=== PATIENT | male | born 1945 | race Caucasian/White ===

== ENCOUNTER 2018-10-24 12:18 | Observation (INO) ==
[2018-10-24 12:35] LABS: Basophils % 0.4 %; Eosinophils % 0.5 %; Immature Granulocytes % 0.1 % (0-4); Lymphocytes # 0.4 K/mcL (0.6-4.6); Lymphocytes % 5.2 %; Mean Corpuscular HGB Conc 32.6 g/dL (31.6-35.5); Mean Corpuscular Hemoglobin 32.5 pg (28.0-33.3); Mean Corpuscular Volume 99.6 fL (83.0-100.0); Mean Platelet Volume 9.6 fL (9.4-12.4); Monocytes # 0.4 K/mcL (0.0-1.3); Monocytes % 4.9 %; Neutrophils # 7.5 K/mcL (1.6-8.9); Platelet Count 113 K/mcL (140-400); Red Blood Count 4.62 M/mcL (4.19-5.50); Segmented Neutrophils % 88.9 %; White Blood Count 8.5 K/mcL (4.3-11.1)
[2018-10-24 12:48] LABS: INR 1.1; Prothrombin Time 12.6 Seconds (9.4-12.1)
[2018-10-24] MEDS ORDERED: 0.9 % Sodium Chloride 1,000 ML IVC ONE (12:50)
[2018-10-24 12:51] LABS: Activated Partial Thrombo Time 30.4 Seconds (26.0-36.0)
--- NOTE | 2018-10-24 12:53 | Emergency Department Note ---
Disposition Clinical Impression: Chest pain Disposition: Admitted As Inpatient Condition: Fair Forms: ED Satisfaction Letter Time of Disposition: 14:08 Chest Pain HPI - General Chief Complaint: ED Chest Pain Stated Complaint: CP Time Seen by Provider: 10/24/18 12:22 - History of Present Illness HPI Narrative: Patient is 73-year-old male presents to the emergency room after an episode of lightheadedness and chest discomfort. The patient states that in the shower today and he started feeling lightheaded this morning around 8 AM. The patient states that he apparently was shaving after the shower he got continued lightheadedness and needed to sit down. Patient states that shortly thereafter this episode he started developing some chest discomfort. He states at times it was sharp in intensity and then would go away. He did have some diaphoresis however he states that sometimes he does get sweaty for no apparent reasons. The patient does have a history of coronary artery disease with a history of 3 stents last stent put in about 10 years ago according to patient. Patient denies any back pain, denies any abdominal pain. He readily admits he does not drink enough water. Patient denies any other or GI complaints. He does have a history of Parkinson's. The patient denies any focal arm or leg weakness however. He denies any headache. Patient denies any blurred vision. Patient currently denies any pain. The patient was able to take 4 baby aspirin prior to arrival. Patient states when he was having the pain and the pain was mild in intensity. Nothing else making the pain better or worse while he was having it. Severity scale (1-10): 0 - Related Data Home Medications Medication Instructions Recorded Confirmed Aspirin [Lo-Dose Aspirin EC] 81 mg PO DAILY 10/24/18 10/24/18 Atorvastatin Calcium [Lipitor] 40 mg PO HS 10/24/18 10/24/18 Cholecalciferol (Vitamin D3) 1,000 unit PO DAILY 10/24/18 10/24/18 [Vitamin D] Donepezil HCl [Aricept] 10 mg PO DAILY 10/24/18 10/24/18 Multivitamin [Daily Multiple 1 each PO DAILY 10/24/18 10/24/18 Vitamin] Timolol Maleate 0.5% 1 drop LEFT EYE BID 10/24/18 10/24/18 Allergies Allergy/AdvReac Type Severity Reaction Status Date / Time Penicillins AdvReac Rash Verified 06/30/16 11:14 Review of Systems: As mentioned per history of present illness and as follows. Constitutional: Negative for chills or fever HENT: Negative for sore throat. Eyes: Negative for visual disturbance Respiratory: Negative for shortness of breath. Cardiovascular: Negative for palpitations. Gastrointestinal: Negative for abdominal pain Genitourinary: Negative for dysuria Musculoskeletal: Negative for back pain. Skin: Negative for rash. Neurological: Negative for focal weakness Psychiatric/Behavioral: Negative for depression Chest Pain PMH - Past Medical History Medical history: Reports: dementia, hyperlipidemia, myocardial infarction - Social History Smoking Status: Never smoker Alcohol use: Reports: none Drug use: Reports: none Physical Exam PHYSICAL EXAM Constitutional: Well developed, Well nourished, No acute distress, Non-toxic appearance. HENT: Normocephalic, Atraumatic, Bilateral external ears normal, Oropharynx moist, No oral exudates, Nose normal. Neck- Normal range of motion, No tenderness, Supple. Eyes: PERRL, EOMI, Conjunctiva normal,. Cardiovascular: Regular rate and rhythm without clicks, rubs, gallops or murmurs. Respiratory: Normal breath sounds, No respiratory distress, No wheezing, rhonchi, or crackles. GI: Soft, nontender, no evidence of guarding or peritoneal signs. Bowel sounds are active. Musculoskeletal: Good range of motion in all major joints. No tenderness to palpation or major deformities noted. Equal strength in the upper and lower extremities Integument: Warm, Dry, No erythema, No rash. No edema. Neurologic: Alert & oriented x 3, Normal sensory function, No focal deficits noted. CN II-XII grossly intact. - General General appearance: alert Course Vital Signs Temperature 98.7 F 10/24/18 12:36 Pulse Rate 58 10/24/18 12:36 Respiratory Rate 15 10/24/18 12:36 Blood Pressure 127/59 10/24/18 12:36 O2 Sat by Pulse Oximetry 99 10/24/18 12:36 Temperature 98.7 F 10/24/18 12:36 Pulse Rate 59 10/24/18 13:17 Respiratory Rate 15 10/24/18 12:36 Blood Pressure 118/52 10/24/18 13:17 O2 Sat by Pulse Oximetry 99 10/24/18 12:36 Oxygen Delivery Oxygen Delivery Room Air Chest Pain - MDM Narrative Medical decision making narrative: Patient did have an EKG done at arrival that showed evidence of sinus rhythm at 59 beats a minute, did not see any gross ST elevation or depression, NV and QT intervals within normal limits. Interpreted by myself. Patient has a negative workup here in emergency room, he has remained pain-free here in the emergency room. However given his risk factors as well as heart score and a moderate category I do feel the patient should be further evaluated from an observation standpoint. Family and patient do agree to this. The patient will be admitted in stable condition to the floor. Patient has stable vitals, x-ray is normal. The patient at this point time will be admitted in stable condition. Case was discussed in full detail with the hospitalist. Final impression 1. Chest pain, precordial - Lab Data Result diagrams: 10/24/18 12:24 10/24/18 12:24 Lab Results 10/24/18 10/24/18 10/24/18 Range/Units 12:24 12:24 12:24 WBC 8.5 (4.3-11.1) K/mcL RBC 4.62 (4.19-5.50) M/mcL Hgb 15.0 (12.9-16.9) g/dL Hct 46.0 (37.5-50.1) % MCV 99.6 (83.0-100.0) fL MCH 32.5 (28.0-33.3) pg MCHC 32.6 (31.6-35.5) g/dL RDW 13.0 (11.5-14.5) % Plt Count 113 L (140-400) K/mcL MPV 9.6 (9.4-12.4) fL Immature Gran % 0.1 (0-4) % Seg Neutrophils % 88.9 % Lymphocytes % 5.2 % Monocytes % 4.9 % Eosinophils % 0.5 % Basophils % 0.4 % Neutrophils # 7.5 (1.6-8.9) K/mcL Lymphocytes # 0.4 L (0.6-4.6) K/mcL Monocytes # 0.4 (0.0-1.3) K/mcL Eosinophils # 0.0 (0.0-0.6) K/mcL Basophils # 0.0 (0.0-0.2) K/mcL PT 12.6 H (9.4-12.1) Seconds INR 1.1 APTT 30.4 (26.0-36.0) Seconds Sodium 141 (136-145) mEq/L Potassium 3.8 (3.5-5.1) mEq/L Chloride 101 (98-107) mEq/L Carbon Dioxide 33 H (23-29) mEq/L BUN 12 (8-23) mg/dL Creatinine 1.02 (0.70-1.30) mg/dL Est GFR ( Amer) > 60 (> 60) Est GFR (Non-Af Amer) > 60 (> 60) BUN/Creatinine Ratio 12 (6-26) Glucose 155 H (70-105) mg/dL Calculated Osmolality 295 (280-300) Calcium 9.5 (8.6-10.3) mg/dL Troponin I < 0.03 (< 0.04) ng/mL Heart Score - Score History: Slightly Suspicious EKG: Normal Age: Greater than 65 Risk Factors: Equal/Greater than 3 risk factor or history of atherosclerotic disease Troponin: Less than normal limit HEART Score Total: 4
[2018-10-24 12:58] LABS: BUN/Creatinine Ratio 12 (6-26); Blood Urea Nitrogen 12 mg/dL (8-23); Calcium 9.5 mg/dL (8.6-10.3); Carbon Dioxide 33 mEq/L (23-29); Chloride 101 mEq/L (98-107); Glucose 155 mg/dL (70-105); Osmolality,Calculated 295 (280-300); Potassium 3.8 mEq/L (3.5-5.1); Sodium 141 mEq/L (136-145); eGFR For African Americans > 60 (> 60); eGFR For Non-African Americans > 60 (> 60)
[2018-10-24 12:59] LABS: Troponin I < 0.03 ng/mL (< 0.04)
[2018-10-24] MEDS ORDERED: Ondansetron 4 MG/2 ML VIAL IVP PRN (14:14)
[2018-10-24] MEDS ORDERED: Acetaminophen 325 MG TABLET PO PRN (14:14)
[2018-10-24] MEDS ORDERED: Naloxone 0.4 MG/ML INJ IVP PRN (14:14)
[2018-10-24] MEDS ORDERED: *HR* HYDROcodone/Acet 5/325 mg TABLET PO PRN (14:20)
[2018-10-24] MEDS ORDERED: Nitroglycerin 0.4 MG TAB.SUBL SL PRN (14:21)
--- NOTE | 2018-10-24 14:27 | Internal Med History&Physical ---
Date of Encounter: 10/24/18 Time of Encounter: 14:23 Internal Medicine - H&P: HPI Chief complaint: chest pain / syncope Admitted From: Emergency Dept Plans for Post Hospital Care: Home History of present illness: Mr. Barajas is a 73 year old male with known PMH of HTN, HLD, CAD s/p PCI and recently diagnosed parkinson's disease who is not on any medication now he was brought into ER by family stating that this morning while taking shower he felt so weak, lethargic and almost passed out in the bath tub. He crawled out of the bath tube. He denied any loss of consciousness. After coming out of the bath tube he started having intermittent CP , located sub sternally, non radiating, 6/10 sharp pain noticed. He denied any CP now. He denied any SOB. He was diaphoretic when he had CP. In the ER his inital trop was negative and EKG showed Sinus rythm HR @ 59, Non specific ST changes in lateral leads. Past Med Surg Social Fam HX - Past Medical History Medical history: dementia, hyperlipidemia, myocardial infarction Additional medical history: Parkinson's - Social History Smoking Status: Never smoker Alcohol use: none Drug use: none - Family History Father Hx Family Cardiac Disorders: Yes (Had UT in his 60's) Internal Medicine - H&P: Meds Aspirin [Lo-Dose Aspirin EC] 81 mg PO DAILY 10/24/18 [History] Atorvastatin Calcium [Lipitor] 40 mg PO HS 10/24/18 [History] Cholecalciferol (Vitamin D3) [Vitamin D] 1,000 unit PO DAILY 10/24/18 [History] Donepezil HCl [Aricept] 10 mg PO DAILY 10/24/18 [History] Multivitamin [Daily Multiple Vitamin] 1 each PO DAILY 10/24/18 [History] Timolol Maleate 0.5% 1 drop LEFT EYE BID 10/24/18 [History] Allergy/AdvReac Type Severity Reaction Status Date / Time Penicillins AdvReac Rash Verified 06/30/16 11:14 All Systems PM: A 10-system review of systems was performed and is negative for pertinent findings except as documented above in the HPI. Review of systems: All the systems are reviewed everything is benign except the systems and symptoms I mentioned in the history of present illness - Constitutional Vitals: Temp Pulse Resp BP Pulse Ox 98.7 F 59 15 118/52 99 10/24/18 12:36 10/24/18 13:17 10/24/18 12:36 10/24/18 13:17 10/24/18 12:36 General appearance: Present: cooperative, A&O X 3, no acute distress Exam: a - Head Head exam: Present: atraumatic, normal inspection - Neck Neck exam general surgery: Present: normal inspection, supple. Absent: tenderness - Respiratory Respiratory exam: Present: decreased breath sounds. Absent: rales, respiratory distress, rhonchi, wheezes - Cardiovascular Cardiovascular exam: Present: RRR, +S1, +S2. Absent: tachycardia - GI/Abdominal GI/Abdominal exam: Present: normal bowel sounds, soft. Absent: rebound, rigid, tenderness - Extremities Exam Extremities exam: Present: normal inspection. Absent: calf tenderness, pedal edema, tenderness - Back Exam Back exam: Absent: CVA tenderness (L), CVA tenderness (R) - Neurological Exam Neurological exam: Present: alert, oriented X3 - Psychiatric Psychiatric exam: Present: normal affect, normal mood - Skin Skin exam: Absent: rash Internal Med - H&P Results - Labs CBC & Chem 7: 10/24/18 12:24 10/24/18 12:24 Labs: Short CBC 10/24/18 Range/Units 12:24 WBC 8.5 (4.3-11.1) K/mcL Hgb 15.0 (12.9-16.9) g/dL Hct 46.0 (37.5-50.1) % Plt Count 113 L (140-400) K/mcL Neutrophils # 7.5 (1.6-8.9) K/mcL BMP 10/24/18 12:24 Sodium 141 Potassium 3.8 Chloride 101 Carbon Dioxide 33 H BUN 12 Creatinine 1.02 Glucose 155 H Calcium 9.5 Cardiac Enzymes 10/24/18 Range/Units 12:24 Troponin I < 0.03 (< 0.04) ng/mL - Impressions ITS Impressions Chest X-Ray 10/24/18 12:23 IMPRESSION: No acute cardiopulmonary disease. D/ / Kevin Gorman MD / Kevin Gorman MD Interpreting Provider: Kevin Gorman MD - Assessment and Plan (1) Chest pain Current Visit: Yes Status: Acute Assessment and plan: Will admit the pt into Tele for observation Will place pt on telemetry monitor check serial troponin so far negative troponin EKG reviewed - Sinus rythm, Non specific ST changes in lateral leads Cont pt on ASA and Nitro PRN for pain Will check FLP in AM Will get stress test in AM since pt is high risk for ACS Qualifiers: Chest pain type: unspecified Qualified Code(s): R07.9 - Chest pain, unspecified (2) Near syncope Current Visit: Yes Status: Acute Assessment and plan: Pt's Syncope seems to be more like vasovagal reaction / ortho static however still need to r/o ACS vs Arrhythmia placed him on telemetry monitor will get 2 D echo and Carotid Doppler in AM Will check ortho stat vitals Started on IV fluids (3) CAD (coronary artery disease) Current Visit: Yes Status: Acute Assessment and plan: resumed home meds Qualifiers: Coronary Disease-Associated Artery/Lesion type: [place] artery [place] vs. transplanted heart: [place] heart Associated angina: without angina Qualified Code(s): I25.10 - Atherosclerotic heart disease of [place] coronary artery without angina pectoris (4) Hypertension Current Visit: Yes Status: Acute Assessment and plan: stable BP with no medications cont close monitoring Qualifiers: Hypertension type: essential hypertension Qualified Code(s): I10 - E ssential (primary) hypertension (5) Hyperlipidemia Current Visit: Yes Status: Acute Assessment and plan: resumed home meds Qualifiers: Hyperlipidemia type: unspecified Qualified Code(s): E78.5 - Hyperlipidemia, unspecified (6) Parkinsons disease Current Visit: Yes Status: Acute Assessment and plan: recommend to f/u with PCP and Neurology as an out pt - Time Spent With Patient Total time spent is greater than 50% in coordination of care (as documented) at patient's floor/unit and/or counseling patient:
[2018-10-24] MEDS: 0.9 % Sodium Chloride 1,000 ML IVC SCH (17:48)
[2018-10-25 01:03] LABS: Chol/HDL Ratio 1.9 (0-4.9)
[2018-10-25] MEDS: 0.9 % Sodium Chloride 1,000 ML IVC SCH (02:44)
[2018-10-25] MEDS ORDERED: Regadenoson 0.4 MG/5 ML SYRINGE IVP ONE ×2 (06:29→10:30)
[2018-10-25] MEDS ORDERED: *HR* LORazepam 2 MG/ML VIAL IVP ONE (08:33)
[2018-10-25] MEDS ORDERED: Multivit/Ca/Min/Fe/FA 1 TAB TABLET PO SCH (09:00)
[2018-10-25] MEDS ORDERED: Aspirin Enteric Coated 81 MG Tablet PO SCH (09:00)
[2018-10-25] MEDS ORDERED: Cholecalciferol (D-3) 1,000 UNIT (25MCG) TABLET PO SCH (09:00)
[2018-10-25 11:00] VITALS: BP 118/73
--- NOTE | 2018-10-25 13:09 | Discharge Summary ---
- NOTES TO OUTPATIENT PROVIDER Notes to Outpatient Provider: f/u with PCP in one week. [facility]. Orders not resulted at time of discharge: Pending orders 10/24/18 12:23 ECG 12 lead ECG [ECG] Stat 10/25/18 07:00 NM johana perf SPECT multi [NM] Routine Date of Encounter: 10/25/18 Time of Encounter: 13:06 - Discharge Diagnosis (1) Chest pain Priority: Primary Status: Acute Qualifiers: Chest pain type: unspecified Qualified Code(s): R07.9 - Chest pain, unspecified (2) Near syncope Priority: Primary Status: Acute (3) CAD (coronary artery disease) Priority: Secondary Status: Chronic Qualifiers: Coronary Disease-Associated Artery/Lesion type: [place] artery [place] vs. transplanted heart: [place] heart Associated angina: without angina Qualified Code(s): I25.10 - Atherosclerotic heart disease of [place] coronary artery without angina pectoris (4) Hypertension Priority: Secondary Status: Chronic Qualifiers: Hypertension type: essential hypertension Qualified Code(s): I10 - Essential (primary) hypertension (5) Hyperlipidemia Priority: Secondary Status: Chronic Qualifiers: Hyperlipidemia type: unspecified Qualified Code(s): E78.5 - Hyperlipidemia, unspecified (6) Parkinsons disease Priority: Secondary Status: Chronic Hospital course: Mr. Barajas is a 73 year old male with known PMH of HTN, HLD, CAD s/p PCI and recently diagnosed parkinson's disease who is not on any medication now he was brought into ER by family stating that this morning while taking shower he felt so weak, lethargic and almost passed out in the bath tub. He crawled out of the bath tube. He denied any loss of consciousness. After coming out of the bath tube he started having intermittent CP , located sub sternally, non radiating, 6/10 sharp pain noticed. He denied any CP now. He denied any SOB. He was diaphoretic when he had CP. In the ER his inital trop was negative and EKG showed Sinus rythm HR @ 59, Non specific ST changes in lateral leads. He was admitted in the hospital and placed him on dispatcher maintenance service. His serial troponin came back is negative. His echocardiogram showed preserved LVEF and mild LV diastolic dysfunction. Since patient is high risk for ACS he did go for nuclear stress test which came back as negative for ischemia/infarction. So will discharge him home in a stable condition today. His near syncope seems to be due to ortho static, parkinson's disease and physical deconditioning. Will discharge him home in a stable condition today with home health, PT and OT services. I did talk to the patient and his family at bedside and explained to them about current hospital course. - Time Spent with Patient Total time spent providing and/or coordinating discharge services: - Discharge Medications Prescriptions: Continued Cholecalciferol (Vitamin D3) [Vitamin D3] 3,000 unit PO DAILY Timolol Maleate 0.5% 1 drop LEFT EYE BID Aspirin [Lo-Dose Aspirin EC] 81 mg PO DAILY Donepezil HCl [Aricept] 10 mg PO DAILY Atorvastatin Calcium [Lipitor] 40 mg PO HS Multivitamin [Daily Multiple Vitamin] 1 each PO DAILY Latanoprost [Xalatan] 1 drop BOTH EYES HS Home Medications: Aspirin [Lo-Dose Aspirin EC] 81 mg PO DAILY 10/24/18 [History] Atorvastatin Calcium [Lipitor] 40 mg PO HS 10/24/18 [History] Cholecalciferol (Vitamin D3) [Vitamin D3] 3,000 unit PO DAILY 10/24/18 [History] Donepezil HCl [Aricept] 10 mg PO DAILY 10/24/18 [History] Latanoprost [Xalatan] 1 drop BOTH EYES HS 10/24/18 [History] Multivitamin [Daily Multiple Vitamin] 1 each PO DAILY 10/24/18 [History] Timolol Maleate 0.5% 1 drop LEFT EYE BID 10/24/18 [History] Allergies/Adverse Reactions: Allergy/AdvReac Type Severity Reaction Status Date / Time Penicillins AdvReac Rash Verified 10/24/18 16:02 Date of admission: 10/24/18 16:11 Primary care physician: [facility] Consults: 10/25/18 10:58 Consult to [employer] [CONS] Routine Reason for SW Consult: POA and living will information - Constitutional Vitals: Temp Pulse Resp BP Pulse Ox 98.1 F 50 17 118/73 99 10/25/18 10:56 10/25/18 10:56 10/25/18 10:56 10/25/18 10:56 10/25/18 10:56 General appearance: Present: cooperative, A&O X 3, no acute distress Exam: Gen: Alert, awake, Oriented to time,place and person Chest: Diminished breath sounds B/L, No wheezing, No crackles, No rales Heart: S1S2+ RRR No murmurs Abd: Soft, NT, BS +, No organomegaly Ext: No edema, pulses are palpable, No calf tenderness Neuro : No acute focal neuro deficits noticed Skin: No rash. - Patient Status Disposition: Home Health Service Condition: Good Overall status at discharge: patient is back to baseline - Discharge Instructions [facility]: [facility] Provider[facility] - - Diet and Activity Activity: increase activity as tolerated Diet: low salt diet
--- NOTE | 2018-10-25 13:10 | Physician Discharge Referral ---
Home Health/Hosp Referral Info Transfer to: Home Health Provider in Charge Post Discharge: PCP - Diagnosis (1) Chest pain Status: Acute (2) Near syncope Status: Acute (3) CAD (coronary artery disease) Status: Chronic (4) Hypertension Status: Chronic (5) Hyperlipidemia Status: Chronic (6) Parkinsons disease Status: Chronic - Respiratory Orders Smoking Cessation: Smoking cessation has been advised. For more information, call the [place] Tobacco Quit Line at 3-380-HZAA-NOW. - Services Needed Following services are medically necessary services: Nursing, Physical Therapy, Occupational Therapy - Transfer Medications Home Medications: Aspirin [Lo-Dose Aspirin EC] 81 mg PO DAILY 10/24/18 [History] Atorvastatin Calcium [Lipitor] 40 mg PO HS 10/24/18 [History] Cholecalciferol (Vitamin D3) [Vitamin D3] 3,000 unit PO DAILY 10/24/18 [History] Donepezil HCl [Aricept] 10 mg PO DAILY 10/24/18 [History] Latanoprost [Xalatan] 1 drop BOTH EYES HS 10/24/18 [History] Multivitamin [Daily Multiple Vitamin] 1 each PO DAILY 10/24/18 [History] Timolol Maleate 0.5% 1 drop LEFT EYE BID 10/24/18 [History] Allergies/Adverse Reactions: Allergy/AdvReac Type Severity Reaction Status Date / Time Penicillins AdvReac Rash Verified 10/24/18 16:02 Certification: Further, I certify that my clinical findings support that this patient is homebound (i.e. absences from home require considerable and taxing effort and are for medical reasons or anabaptism services or infrequently or short duration when for other reasons) because: Homebound Reason: Patient requires assistance of a person or device to safely leave home Attestation: My signature below is to certify that this patient is under my care and that I, or nurse practitioner, or a physician's senior administrative assistant working with me, has a [id number] encounter with this patient.
--- NOTE | 2018-10-26 00:12 | Electrocardiograph Report ---
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
== END 2018-10-25 14:30 | disposition home health service (06) ==
LOC: 3BNU 12:18 → EMEROOARM 12:18 → SUATTDRO 16:11 → 3BNU 17:05
PROVIDERS: ADMIT Student in an Organized Health Care Education/Training Program; ATTEND Family Medicine